=== PATIENT | male | born 1985 | race Caucasian/White ===

== ENCOUNTER 2021-04-05 14:26 | Emergency (ER) | payer BC, SELFPAY ==
--- NOTE | 2021-04-05 15:26 | ED.HEATRA ---
HPI - Head Injury General Chief complaint: Wound/Laceration Stated complaint: Gash on head Time Seen by Provider: 04/05/21 15:48 Source: patient Mode of arrival: ambulatory Limitations: no limitations History of Present Illness HPI Narrative: Previously well 35-year-old man comes in today complaining of laceration on the back of his head. His child threw a chlorine dispensing device into the pool as he was getting out, striking him in the head. He had no loss of consciousness and has had no headache, nausea, vomiting, changes in his vision or difficulty walking. He is unsure of his last tetanus shot but thinks it has been greater than 5 years. Complaint: head injury Onset (ago): hour(s) (2) Mechanism of Injury: other ( Direct blow) Place: home Loss of Consciousness: no Location of injury: occipital Severity: mild Quality: sharp Radiation: none Other Injuries: none Associated symptoms: denies other symptoms Related Data Allergies Allergy/AdvReac Type Severity Reaction Status Date / Time amoxicillin Allergy Intermediate Verified 12/16/20 12:54 Penicillins Allergy Intermediate Verified 12/16/20 12:54 Review of Systems Review of Systems: All systems reviewed & are unremarkable except as noted in HPI and below Eyes: Eyes: Denies change in vision and Denies photophobia Gastrointestinal: Gastrointestinal: Denies nausea and Denies vomiting Musculoskeletal: Musculoskeletal: Denies back pain, Denies arthralgias and Denies joint swelling Integumentary/Breasts: Skin/Breast: Denies pruritus, Denies erythema and Denies rash Neurologic: Denies confusion, Denies vertigo, Denies dizziness, Denies syncope, Denies headache(s), Denies focal weakness, Denies numbness and Denies weakness Hematologic/Lymphatic: Hematologic/Lymphatic: Denies easy bleeding and Denies easy bruising Allergic/Immunologic: Allergic/Immunologic: Denies lip swelling and Denies throat swelling PMF Social History Social History Smoking status: Current every day smoker Gender identity (if verbalized by the patient): Male Exam Const: General: healthy appearing, no acute distress and alert Orientation/consciousness: patient oriented x3 Limitations: no limitations Other: 3.5 cm laceration on the upper occipital scalp. No foreign bodies are present. HENMT: Ears: external ears normal General nose exam: Normal nares present Face and sinus: normal facial exam Eyes: Conjunctivae: conjunctivae normal Pupils: Equal, round and reactive pupils present EOM: EOMs intact bilaterally Skin: General skin exam: normal color, no jaundice and no pallor Rashes: no rashes Neuro: General: patient oriented x3, moves all extremities and no focal motor deficits Cranial nerves: Yes CN's II-XII intact bilaterally Speech: normal speech Gait exam (Neuro): Normal gait present Extrem: General: normal to inspection and no clubbing, cyanosis or edema Psych: Appearance: grossly normal and well kempt Mental Status: mental status grossly normal Affect: normal affect Attitude: cooperative Course Vital Signs Vital signs: Vital Signs Temperature 36.8 C 04/05/21 15:31 Pulse Rate 87 04/05/21 15:31 Respiratory Rate 20 04/05/21 15:31 Blood Pressure 136/100 H 04/05/21 15:31 Pulse Oximetry 98 04/05/21 15:31 Temperature 36.8 C 04/05/21 15:31 Pulse Rate 87 04/05/21 15:31 Respiratory Rate 20 04/05/21 15:31 Blood Pressure 136/100 H 04/05/21 15:31 Pulse Oximetry 98 04/05/21 15:31 Procedures Laceration Laceration 1: Date: 04/05/21 Time: 16:07 Site: scalp Size (cm): 3.5 Description: linear Depth: simple, single layer Local Anesthetic: lidocaine 1% and with epi Amount of anesthesia used (mL): 2.5 Pre-repair: wound explored and irrigated extensively ====== Skin Level ====== Skin layer closed with: marti (3)
[2021-04-05 15:31] VITALS: BP 136/100; PULSE 87; RESP 20; TEMP 36.8; O2SAT 98
[2021-04-05 17:13] VITALS: BP 131/84; PULSE 82; RESP 20; TEMP 36.9; O2SAT 97
== END 2021-04-05 17:15 | disposition home or self-care (01) ==
PROVIDERS: Emergency Provider Emergency Medicine
DX: S01.01XA Laceration without foreign body of scalp, initial encounter (principal); W20.8XXA Other cause of strike by thrown, projected or falling object, initial encounter
CPT/HCPCS: 12002; 99282